=== PATIENT | female | born 1990 | race African-American/Black ===

== ENCOUNTER 2018-01-17 16:19 | Observation (INO) | payer MEDICAID ==
[~2018-01-17] VITALS: Ht 167.6 cm; Wt 72.6 kg
[2018-01-17 16:22] VITALS: BP 101/59; Ht 167.6 cm; Wt 72.6 kg
[2018-01-17 17:47] LABS: APPEARANCE CLEAR (CLEAR); BILIRUBIN NEGATIVE (NEGATIVE); COLOR YELLOW (YELLOW); GLUCOSE NEGATIVE (NEGATIVE); HEMATOCRIT 35.4 % (36.0-48.0); HEMOGLOBIN 11.9 g/dL (12-16); KETONE NEGATIVE (NEGATIVE); MCH 28.9 pg (26.0-34.0); MCHC 33.6 g/dL (31.0-37.0); MCV 85.9 fL (80.0-100.0); MEAN PLATELET VOLUME 9.5 fL (7.4-10.4); NITRITE NEGATIVE (NEGATIVE); PROTEIN NEGATIVE (NEGATIVE); RBC 4.12 10x6/uL (4.00-5.40); RDW 13.4 % (11.5-14.5); SPECIFIC GRAVITY 1.005 (1.005-1.020); UROBILINOGEN NORMAL (NORMAL); WBC 9.8 10x3/uL (4.8-10.8)
[2018-01-17] MEDS ORDERED: FLAGYL500 MG PO (18:01)
[2018-01-17 18:14] LABS: ALBUMIN 3.1 g/dL (3.4-5.0); ALKALINE PHOSPHATASE 62 U/L (46-116); ALT (SGPT) 44 U/L (10-68); BILIRUBIN - TOTAL 0.23 mg/dL (0.2-1.3); CALC OSMOLALITY 275 mosm/kg (275-300); CALCIUM 9.3 mg/dL (8.5-10.1); CARBON DIOXIDE 23.8 mmol/L (21.0-32.0); CHLORIDE - SERUM 105 mmol/L (98-107); CREATININE - SERUM 0.6 mg/dL (0.6-1.3); GLUCOSE 87 mg/dL (74-106); POTASSIUM - SERUM 3.8 mmol/L (3.5-5.1); PROTEIN - SERUM 6.7 g/dL (6.4-8.2); SODIUM 139 mmol/L (136-145); UREA NITROGEN 9 mg/dL (7-18); eGFR NON AFRICAN AMERICAN > 90 mL/min (90-120)
[2018-01-17 18:27] LABS: UDS - AMPHET NEGATIVE QUAL (NEGATIVE); UDS - BARB NEGATIVE QUAL (NEGATIVE); UDS - BENZO NEGATIVE QUAL (NEGATIVE); UDS - COCAINE NEGATIVE QUAL (NEGATIVE); UDS - OPIATE NEGATIVE QUAL (NEGATIVE); UDS - PCP NEGATIVE QUAL (NEGATIVE); UDS - THC NEGATIVE QUAL (NEGATIVE)
[2018-01-18] MEDS ORDERED: IBUPROFEN800 MG PO (13:01)
[2018-01-18] MEDS ORDERED: TYLENOL W/CODEI1 TAB PO (13:02)
[2018-01-19 07:33] LABS: RAPID PLASMA REAGIN Non Reactive (Non Reactive)
== END 2018-01-18 13:55 | disposition home or self-care (01) ==
LOC: D.LDO 16:19 → D.ER 16:19 → EDSTATUS 16:46 → D.LD 16:52 → OBSVTIME 18:00 → D.LD 01-18 13:55
PROVIDERS: Obstetrics & Gynecology
DX: O42.912 Preterm premature rupture of membranes, unspecified as to length of time between rupture and onset of labor, second trimester (principal); Z3A.19 19 weeks gestation of pregnancy; Z37.0 Single live birth

== ENCOUNTER 2018-05-29 10:36 | Emergency (ER) | payer MEDICAID ==
[~2018-05-29] VITALS: Ht 167.6 cm; Wt 77.3 kg
[~2018-05-29 10:36] MED LIST: FLAGYL500 MG PO; IBUPROFEN800 MG PO; TYLENOL W/CODEI1 TAB PO
[2018-05-29 10:39] VITALS: Ht 167.6 cm; Wt 77.3 kg
[2018-05-29 11:21] LABS: BASOPHILS 0.3 % (0-2); EOSINOPHILS 1.1 % (0-7); HEMATOCRIT 39.3 % (36.0-48.0); HEMOGLOBIN 13.2 g/dL (12-16); LYMPHOCYTES 28.7 % (15-50); MCH 28.4 pg (26.0-34.0); MCHC 33.6 g/dL (31.0-37.0); MCV 84.7 fL (80.0-100.0); MEAN PLATELET VOLUME 9.5 fL (7.4-10.4); MONOCYTES 5.1 % (2-11); NEUTROPHILS 64.8 % (40-80); PLATELET COUNT 276 10x3/uL (130-400); RBC 4.64 10x6/uL (4.00-5.40); RDW 13.2 % (11.5-14.5); WBC 6.5 10x3/uL (4.8-10.8)
[2018-05-29 11:37] LABS: ALBUMIN 3.9 g/dL (3.4-5.0); ALKALINE PHOSPHATASE 61 U/L (46-116); ALT (SGPT) 21 U/L (10-68); CALC OSMOLALITY 278 mosm/kg (275-300); CALCIUM 8.8 mg/dL (8.5-10.1); CARBON DIOXIDE 25.9 mmol/L (21.0-32.0); CHLORIDE - SERUM 102 mmol/L (98-107); CREATININE - SERUM 0.8 mg/dL (0.6-1.3); GLUCOSE 98 mg/dL (74-106); POTASSIUM - SERUM 3.8 mmol/L (3.5-5.1); PROTEIN - SERUM 7.5 g/dL (6.4-8.2); SODIUM 139 mmol/L (136-145); UREA NITROGEN 14 mg/dL (7-18); eGFR NON AFRICAN AMERICAN > 90 mL/min (90-120)
[2018-05-29 14:46] VITALS: BP 122/89
== END 2018-05-29 14:47 | disposition home or self-care (01) ==
LOC: D.ER 10:36
PROVIDERS: Family Medicine
DX: O20.0 Threatened abortion (principal); Z3A.00 Weeks of gestation of pregnancy not specified

== ENCOUNTER 2018-07-21 10:43 | Emergency (ER) | payer MEDICAID ==
[~2018-07-21] VITALS: Ht 167.6 cm; Wt 82.3 kg
[2018-07-21 10:51] VITALS: BP 130/79; Ht 167.6 cm; Wt 82.3 kg
[2018-07-21 11:30] LABS: APPEARANCE HAZY (CLEAR); BILIRUBIN NEGATIVE (NEGATIVE); COLOR YELLOW (YELLOW); GLUCOSE NEGATIVE (NEGATIVE); KETONE NEGATIVE (NEGATIVE); NITRITE NEGATIVE (NEGATIVE); PROTEIN NEGATIVE (NEGATIVE); SPECIFIC GRAVITY 1.015 (1.005-1.020); UROBILINOGEN NORMAL (NORMAL)
[2018-07-21 11:32] LABS: BASOPHILS 0.1 % (0-2); EOSINOPHILS 0.7 % (0-7); HEMATOCRIT 34.6 % (36.0-48.0); IMMATURE GRANULOCYTES 0.2 % (0-5); LYMPHOCYTES 23.7 % (15-50); MCHC 34.7 g/dL (31.0-37.0); MCV 83.6 fL (80.0-100.0); MEAN PLATELET VOLUME 9.4 fL (7.4-10.4); MONOCYTES 7.7 % (2-11); NEUTROPHILS 67.6 % (40-80); PLATELET COUNT 234 10x3/uL (130-400); RBC 4.14 10x6/uL (4.00-5.40); RDW 13.1 % (11.5-14.5); WBC 8.4 10x3/uL (4.8-10.8)
[2018-07-21 11:34] LABS: BACTERIA MODERATE /hpf (NONE SEEN); MUCUS >1+ /lpf (NONE SEEN); RED CELLS - URINE 0-5 /hpf (0-5); WHITE CELLS - URINE 0-5 /hpf (0-5)
[2018-07-21 11:45] LABS: ALBUMIN 3.4 g/dL (3.4-5.0); ALKALINE PHOSPHATASE 47 U/L (46-116); ALT (SGPT) 16 U/L (10-68); BILIRUBIN - TOTAL 0.31 mg/dL (0.2-1.3); CALC OSMOLALITY 267 mosm/kg (275-300); CALCIUM 9.2 mg/dL (8.5-10.1); CARBON DIOXIDE 24.4 mmol/L (21.0-32.0); CHLORIDE - SERUM 101 mmol/L (98-107); CREATININE - SERUM 0.7 mg/dL (0.6-1.3); GLUCOSE 81 mg/dL (74-106); POTASSIUM - SERUM 3.7 mmol/L (3.5-5.1); PROTEIN - SERUM 7.3 g/dL (6.4-8.2); SODIUM 135 mmol/L (136-145); UREA NITROGEN 10 mg/dL (7-18); eGFR NON AFRICAN AMERICAN > 90 mL/min (90-120)
[2018-07-21 11:50] LABS: HCG SERUM POSITIVE (NEGATIVE)
== END 2018-07-21 12:55 | disposition short-term general hospital (02) ==
LOC: D.ER 10:43
PROVIDERS: Emergency Medicine
DX: O20.0 Threatened abortion (principal); Z3A.12 12 weeks gestation of pregnancy

== ENCOUNTER → 2018-07-21 13:24 | Outpatient (CLI) | payer MEDICAID ==
[2018-07-21 10:51] VITALS: BMI 29.2
== END | disposition home or self-care (01) ==
LOC: D.LABREF 13:24 → D.LDO 13:24
PROVIDERS: ATTEND Obstetrics & Gynecology
DX: O26.851 Spotting complicating pregnancy, first trimester (principal); Z3A.11 11 weeks gestation of pregnancy

== ENCOUNTER 2018-09-10 14:58 | Inpatient (IN) | payer MEDICAID ==
[~2018-09-10] VITALS: Ht 167.6 cm; Wt 83.6 kg
[2018-09-10 16:25] LABS: ALKALINE PHOSPHATASE 60 U/L (46-116); ALT (SGPT) 18 U/L (10-68); BILIRUBIN - TOTAL 0.32 mg/dL (0.2-1.3); CALC OSMOLALITY 275 mosm/kg (275-300); CALCIUM 8.9 mg/dL (8.5-10.1); CARBON DIOXIDE 23.4 mmol/L (21.0-32.0); CHLORIDE - SERUM 105 mmol/L (98-107); CREATININE - SERUM 0.6 mg/dL (0.6-1.3); GLUCOSE 85 mg/dL (74-106); POTASSIUM - SERUM 3.5 mmol/L (3.5-5.1); PROTEIN - SERUM 6.2 g/dL (6.4-8.2); SODIUM 139 mmol/L (136-145); UREA NITROGEN 9 mg/dL (7-18); eGFR NON AFRICAN AMERICAN > 90 mL/min (90-120)
[2018-09-10] MEDS ORDERED: PRENAVITE1 TAB PO ×2 (16:25→16:30)
[2018-09-10 16:30] LABS: MCH 29.7 pg (26.0-34.0); MCHC 35.3 g/dL (31.0-37.0); MCV 84.2 fL (80.0-100.0); MEAN PLATELET VOLUME 9.8 fL (7.4-10.4); PLATELET COUNT 230 10x3/uL (130-400); RBC 4.04 10x6/uL (4.00-5.40); RDW 13.3 % (11.5-14.5); WBC 8.9 10x3/uL (4.8-10.8)
[2018-09-10 16:49] LABS: EOSINOPHILS 1 % (0-7); LYMPHOCYTES 9 % (15-50); MONOCYTES 7 % (2-11); NEUTROPHILS 83 % (40-80); PLATELET ESTIMATE NORMAL; ROULEAUX OCC
[2018-09-10 18:35] VITALS: BP 119/68; Ht 167.6 cm; Wt 83.6 kg
[2018-09-11 06:18] LABS: HEMATOCRIT 29.4 % (36.0-48.0); MCH 28.9 pg (26.0-34.0); MEAN PLATELET VOLUME 9.7 fL (7.4-10.4); PLATELET COUNT 210 10x3/uL (130-400); RBC 3.46 10x6/uL (4.00-5.40); RDW 13.2 % (11.5-14.5)
[2018-09-11 06:42] LABS: EOSINOPHILS 2 % (0-7); LYMPHOCYTES 20 % (15-50); MONOCYTES 7 % (2-11); NEUTROPHILS 71 % (40-80); PLATELET ESTIMATE NORMAL
[2018-09-11 07:22] VITALS: BP 115/64
[2018-09-11 12:32] VITALS: BP 112/69
[2018-09-11 16:06] VITALS: BP 118/79
[2018-09-11 16:30] LABS: MCH 29.5 pg (26.0-34.0); MCHC 34.6 g/dL (31.0-37.0); MCV 85.3 fL (80.0-100.0); MEAN PLATELET VOLUME 9.4 fL (7.4-10.4); RBC 4.14 10x6/uL (4.00-5.40); RDW 13.1 % (11.5-14.5); WBC 8.9 10x3/uL (4.8-10.8)
[2018-09-11 16:39] LABS: HEMATOCRIT 35.3 % (36.0-48.0); HEMOGLOBIN 12.2 g/dL (12-16)
== END 2018-09-11 17:30 | disposition home or self-care (01) | DRG 833 ==
LOC: D.LDO 14:58 → D.LD 16:57
PROVIDERS: ADMIT Obstetrics & Gynecology; ATTEND Obstetrics & Gynecology
DX: O42.912 Preterm premature rupture of membranes, unspecified as to length of time between rupture and onset of labor, second trimester (principal); Z3A.19 19 weeks gestation of pregnancy

== ENCOUNTER → 2018-09-28 09:52 | Outpatient (CLI) | payer MEDICAID ==
[2018-09-10 18:35] VITALS: BMI 29.7
[~2018-09-28 09:52] MED LIST changes: +PRENAVITE1 TAB PO
== END | disposition home or self-care (01) ==
LOC: D.LDO 09:52
PROVIDERS: ATTEND Obstetrics & Gynecology
DX: O76 Abnormality in fetal heart rate and rhythm complicating labor and delivery (principal)

== ENCOUNTER 2018-11-17 13:58 | Emergency (ER) | payer MEDICAID ==
[~2018-11-17] VITALS: Ht 167.6 cm; Wt 81.8 kg
[2018-11-17 14:12] VITALS: Ht 167.6 cm; Wt 81.8 kg
[2018-11-17] MEDS ORDERED: IBUPROFEN800 MG PO (14:17)
[2018-11-17] MEDS ORDERED: OXYCODONE HCL5 M1 PO (14:17)
[2018-11-17 17:00] LABS: APPEARANCE CLEAR (CLEAR); BASOPHILS 0.1 % (0-2); BILIRUBIN NEGATIVE (NEGATIVE); COLOR YELLOW (YELLOW); EOSINOPHILS 1.3 % (0-7); GLUCOSE NEGATIVE (NEGATIVE); HEMOGLOBIN 12.1 g/dL (12-16); IMMATURE GRANULOCYTES 0.2 % (0-5); KETONE NEGATIVE (NEGATIVE); MCH 29.4 pg (26.0-34.0); MCHC 34.6 g/dL (31.0-37.0); MCV 85.2 fL (80.0-100.0); MONOCYTES 6.2 % (2-11); NEUTROPHILS 73.2 % (40-80); NITRITE NEGATIVE (NEGATIVE); PLATELET COUNT 264 10x3/uL (130-400); PROTEIN NEGATIVE (NEGATIVE); RBC 4.11 10x6/uL (4.00-5.40); RDW 13.2 % (11.5-14.5); SPECIFIC GRAVITY 1.005 (1.005-1.020); UROBILINOGEN NORMAL (NORMAL); WBC 8.2 10x3/uL (4.8-10.8)
[2018-11-17 17:02] LABS: BACTERIA FEW /hpf (NONE SEEN); EPITHELIAL CELLS 0-5 /hpf (0-5); RED CELLS - URINE 0-5 /hpf (0-5); WHITE CELLS - URINE 0-5 /hpf (0-5)
[2018-11-17 17:23] LABS: ALBUMIN 2.6 g/dL (3.4-5.0); ALKALINE PHOSPHATASE 74 U/L (46-116); ALT (SGPT) 23 U/L (10-68); BILIRUBIN - TOTAL 0.23 mg/dL (0.2-1.3); CALC OSMOLALITY 279 mosm/kg (275-300); CALCIUM 8.5 mg/dL (8.5-10.1); CARBON DIOXIDE 27.6 mmol/L (21.0-32.0); CHLORIDE - SERUM 108 mmol/L (98-107); CREATININE - SERUM 0.7 mg/dL (0.6-1.3); GLUCOSE 87 mg/dL (74-106); POTASSIUM - SERUM 3.7 mmol/L (3.5-5.1); PROTEIN - SERUM 6.1 g/dL (6.4-8.2); SODIUM 142 mmol/L (136-145); UREA NITROGEN 6 mg/dL (7-18); eGFR NON AFRICAN AMERICAN > 90 mL/min (90-120)
[2018-11-17] MEDS ORDERED: TORADOL10 MG PO (18:54)
[2018-11-17 20:10] VITALS: BP 119/84
[2018-11-24] MEDS ORDERED: DICLOXACILLIN500 MG PO (13:54)
== END 2018-11-17 20:18 | disposition home or self-care (01) ==
LOC: D.ER 13:58
PROVIDERS: Family Medicine
DX: O26.90 Pregnancy related conditions, unspecified, unspecified trimester (principal); K43.2 Incisional hernia without obstruction or gangrene

== ENCOUNTER 2018-11-27 10:33 | Day surgery (SDC) | payer MEDICAID ==
[~2018-11-27] VITALS: Ht 167.6 cm; Wt 81.8 kg
[~2018-11-27 10:33] MED LIST changes: +DICLOXACILLIN500 MG PO; +OXYCODONE HCL5 M1 PO; +TORADOL10 MG PO
[2018-11-27 10:49] LABS: HEMATOCRIT 36.7 % (36.0-48.0); HEMOGLOBIN 12.8 g/dL (12-16); MCH 29.6 pg (26.0-34.0); MCHC 34.9 g/dL (31.0-37.0); MCV 84.8 fL (80.0-100.0); MEAN PLATELET VOLUME 8.9 fL (7.4-10.4); RBC 4.33 10x6/uL (4.00-5.40); RDW 13.1 % (11.5-14.5); WBC 6.1 10x3/uL (4.8-10.8)
[2018-11-27 10:53] LABS: PLATELET COUNT 324 10x3/uL (130-400)
[2018-11-27 10:58] LABS: BASOPHILS 0.3 % (0-2); EOSINOPHILS 1.9 % (0-7); IMMATURE GRANULOCYTES 0.2 % (0-5); LYMPHOCYTES 23.4 % (15-50); MONOCYTES 4.7 % (2-11); NEUTROPHILS 69.5 % (40-80)
--- NOTE | 2018-11-27 12:00 | NUR ---
RECEIVED TO ROOM 2238 VIA FROM OUTPATIENT. A/O X3. NO C/O AT THIS TIME. SKIN IS INTACT WTIHOUT REDNESS EXCEPT INCISION TO LOWER ABDOMEN WHICH IS CLEAN DRY AND WELL APPROXIMATED. PRASHANTS NEEDS.
[2018-11-27 12:23] VITALS: BP 123/80; Ht 167.6 cm; Wt 81.8 kg
[2018-11-27] MEDS ORDERED: COLACE100 MG PO (12:23)
--- NOTE | 2018-11-27 16:00 | NUR ---
IV SITED TO RIGHT HAND AFTER 4 ATTEMPTS WITH 22G. DENIES NEEDS.
[2018-11-27 17:02] VITALS: BP 107/60
--- NOTE | 2018-11-27 17:36 | NUR ---
REQUESTED AND GIVEN ONE HYDROCODONE PO FOR C/O HEADACHE AND BREAST PAIN LEVEL 8. WILL MONITOR.
--- NOTE | 2018-11-27 19:53 | NUR ---
UP AMBULATED IN HALLWAY. NO CHANGES NOTED. DENIES NEEDS.
--- NOTE | 2018-11-27 20:00 | NUR ---
ASSESSMENT PER FLOWSHEET. IV PATENT RT HAND SALINE LOCKED. SITE CLEAR. PATIENT IS PUMPING BREAST MILK FOR HER WHO IS A PATIENT IN [employer].
[2018-11-27 20:34] VITALS: BP 117/61
--- NOTE | 2018-11-27 22:00 | NUR ---
MEDS GIVEN PER MAR.
--- NOTE | 2018-11-28 | NUR ---
TAKING A SHOWER SELF CARE. REMINDED THAT SHE IS NPO.
[2018-11-28 01:22] VITALS: BP 120/58
--- NOTE | 2018-11-28 04:00 | NUR ---
MEDS GIVEN PER MAR.
[2018-11-28 05:18] VITALS: BP 105/58
--- NOTE | 2018-11-28 05:31 | NUR ---
RESTING QUIETLY DENIES NEEDS.
--- NOTE | 2018-11-28 08:50 | NUR ---
AWAKE AND ALERT. ORIENTED X3. UP AT SINK PERFORMING ADL'S. LUNGS ARE CLEAR BILATERALLY, NO COUGH NOTED. SKIN IS INTACT WTIHOUT REDNESS, INCISION TO LOWER ABDOMEN WITHOUT SIGNS OF INFECTION. IV TO RIGHT HAND IS PATENT WTIHOUT REDNESS AT INSERTION SITE. DENIES NEEDS. FAMILY AT BEDSIDE.
--- NOTE | 2018-11-28 10:00 | NUR ---
IS DOING 30CC EVERY HALF HOUR ORDERD. HAS BEEN UP AND URINATED WITHOUT DIFFICUTLY. AMBULATED 250 FEET WITHOUT DIFFICULTY. DENIES NEEDS.
[2018-11-28 12:11] VITALS: BP 112/68
--- NOTE | 2018-11-28 13:45 | NUR ---
DISCHARGED TO HOME AMBULATORY WITH . DISCHARGE INSTRUCTIONS GIVEN BOTH VERBALLY AND WRITTEN. ALL QUESTIONS ANSWERED. PATIENT AND VERBALIZED UNDERSTANDING OF SAME. NEEDED PRESCRIPTIONS ESCRIBED TO PHARMACY OF CHOICE. ALL BELONGINGS WITH PATIENT. IV TO LEFT WRIST D/C WITH CATHETER INTACT.
--- NOTE | 2018-11-28 14:00 | NUR ---
OFF UNIT VIA BED TO SURGERY.
--- NOTE | 2018-11-28 14:07 | NUR ---
CALLED, THEY LEFT CPAP MACHINE IN CLOSET. PLACED AT DESK PER STAFF. RETURNED AND RETRIEVED MACHINE.
[2018-11-28 17:14] VITALS: BP 117/87
--- NOTE | 2018-11-28 17:21 | NUR ---
RETURNED FROM SURGERY.
[2018-11-28] MEDS ORDERED: COLACE100 MG PO (18:51)
[2018-11-28] MEDS ORDERED: HYDROCODON-ACE1 EAC7 PO (18:52)
--- NOTE | 2018-11-28 19:38 | NUR ---
PATIENT REQUESTED TO GO HOME AT THIS TIME. DISCHARGED TO HOME AMBULATORY WITH . DISCHARGE INSTRUCTIONS GIVEN BOTH VERBALLY AND WRITTEN. ALL QUESITONS ANSWEREED. NEEDED PRESCRITPIONS GIVEN TO PATIENT. PATIENT VERBALIZED UNDERSTANDING OF DISCHARGE INSTRUCTIONS. IV TO RIGHT HAND D/C WITH CATHETER INTACT. ALL BELONGINGS WITH PATIENT.
--- NOTE | 2018-11-29 11:45 | DS ---
PATIENT:LEOPOLDO DA SILVA :89 MEDICAL RECORD: [id number] DISCHARGE SUMMARY ADMISSION DATE: 11/27/18 DISCHARGE DATE: 11/28/18 PROCEDURE: Open right inguinal hernia repair with mesh. The patient was to undergo an outpatient right inguinal hernia repair with mesh. She is very tender over the right inguinal area. She has recently undergone delivery of a baby via , but this hernia was not an incisional hernia, but was instead a mature right indirect inguinal hernia. She was to undergo this hernia repair on Tuesday; however, the patient was currently on antibiotics due to mastitis. I wanted to make sure that we would not seed the mesh with bacteria and for this reason, I placed her on IV antibiotics for about 24 hours while she was an inpatient in the hospital. She underwent the above operative procedure. Postoperatively, her pain was controlled. She was dismissed home on [place] as well as Colace. She was told to "pump and dump." I will see her in the office in 3-4 weeks. TRANSINT:[id number] Voice Confirmation ID: [id number] DOCUMENT ID: [id number] BARRETT RODRIGUEZ MD at 1145 CC: [id number] DICTATION DATE: 11/28/182028 QA AUTOMATION ENGINEER: 11/29/18 1043 [facility] 11/28/18 [id number] [place] [address]
--- NOTE | 2018-11-30 16:24 | OP ---
PATIENT NAME: LEOPOLDO DA SILVA MEDICAL RECORD: [id number] :89 LOCATION:[facility] ADMISSION DATE: SURGEON: BARRETT RODRIGUEZ MD DATE OF OPERATION: 11/28/2018 PREOPERATIVE DIAGNOSIS: Symptomatic right inguinal hernia. POSTOPERATIVE DIAGNOSIS: Symptomatic indirect right inguinal hernia. PROCEDURE: Open right indirect inguinal hernia with bi-layered preperitoneal polypropylene mesh. SURGEON: Barrett Rodriguez MD RAKER BUFFING WHEEL: None. BLOOD LOSS: Minimal. ANESTHESIA: General. COMPLICATIONS: None. The risks, possible complications and alternatives to the procedure were explained to the patient. She elects to proceed. OPERATIVE COURSE: The patient was conveyed to the operating room electively on 11/28/2018. General anesthesia was induced by the anesthesia staff. The abdomen and genitals were sterilely prepped and draped. A transverse incision was accomplished in the right groin. Sharp dissection was carried down through the skin and subcutaneous tissues as well as Ileana fascia. I then cleaned connective tissue from the underlying external oblique aponeurosis. The aponeurosis was then incised along the direction of its fibers. I bluntly dissected down through the internal oblique and transversus abdominis muscles. A preperitoneal pocket was fashioned bluntly. I was unable to reduce the hernia sac in its entirety. I transected the hernia sac. I transected the round ligament as well, ligating it distally in order to prevent bleeding. The peritoneal opening was then closed with a running 3-0 Vicryl suture. I completed my preperitoneal dissection. I then cut 2 ovals out of a polypropylene mesh. The 2 ovals was sutured together one on top of the other with running #1 Surgidacs. The mesh was placed in the preperitoneal space. The internal oblique and transversus abdominis muscles were then sutured together with multiple interrupted horizontal mattress 0 Surgidac incorporating a portion of the mesh with these sutures. The external oblique aponeurosis was then closed with running #1 Vicryls. At no time during the operation was there any apparent nervous injury. Ileana fascia was approximated with interrupted 3-0 Vicryls. The subdermis was approximated with interrupted 3-0 Vicryls. The skin was approximated with a running intracuticular 3-0 Vicryl. Benzoin and Steri-Strips were applied. The patient was then extubated and conveyed to the post-anesthesia care unit where she was in stable condition. I plan that she will be dismissed home with a narcotic analgesic. OPERATIVE REPORT [id number] LEOPOLDO DA SILVA TRANSINT:[id number] Voice Confirmation ID: [id number] DOCUMENT ID: [id number] BARRETT RODRIGUEZ MD at 1624 CC: [id number] DICTATION DATE: 11/29/18 1000 GRIZZLY WORKER: 11/29/18 1349 [facility] 11/28/18 [id number] [place] [address]
== END 2018-11-28 19:00 | disposition home or self-care (01) ==
LOC: D.OPS 10:33 → D.MS 10:33 → D.OPS 12:40 → D.PAN 13:00 → D.OPS 13:00
PROVIDERS: Anesthesiology; ATTEND Surgery
DX: K40.90 Unilateral inguinal hernia, without obstruction or gangrene, not specified as recurrent (principal)

== ENCOUNTER 2019-08-31 05:30 | Day surgery (SDC) | payer MEDICAID ==
[2019-08-29 10:18] LABS: BASOPHILS 0.4 % (0-2); EOSINOPHILS 2.5 % (0-7); HEMATOCRIT 38.1 % (36.0-48.0); HEMOGLOBIN 12.5 g/dL (12-16); IMMATURE GRANULOCYTES 0.4 % (0-5); MCH 28.2 pg (26.0-34.0); MCHC 32.8 g/dL (31.0-37.0); MEAN PLATELET VOLUME 9.3 fL (7.4-10.4); MONOCYTES 6.4 % (2-11); NEUTROPHILS 61.3 % (40-80); PLATELET COUNT 319 10x3/uL (130-400); RBC 4.43 10x6/uL (4.00-5.40); RDW 12.7 % (11.5-14.5); WBC 5.3 10x3/uL (4.8-10.8)
[~2019-08-31] VITALS: Ht 167.6 cm; Wt 91.2 kg
--- NOTE | ~2019-08-31 | OP ---
PATIENT NAME: LEOPOLDO DA SILVA MEDICAL RECORD: [id number] :89 [facility] AD[facility] DATE: SURGEON: GIN ZHAO MD DATE OF OPERATION: 08/31/2019 PREOPERATIVE DIAGNOSES: 1. Menorrhagia. 2. The patient desires permanent sterility. POSTOPERATIVE DIAGNOSES: 1. Menorrhagia. 2. The patient desires permanent sterility. 3. Pelvic adhesions. PROCEDURE: Operative laparoscopy, lysis of adhesions, tubal ligation via bipolar cautery as well as hysteroscopy and NovaSure endometrial ablation. SPECIMENS: None. FINDINGS: Included; 1. Extensive adhesive disease involving the omentum and the anterior abdominal wall. 2. Adhesions of right fallopian tube. 3. Grossly normal-appearing endometrial canal. COMPLICATIONS: None apparent. HYSTEROSCOPIC FLUID LOSS: Approximately 100 cc of 0.9 normal saline. ESTIMATED BLOOD LOSS: Minimal. PROCEDURE IN DETAIL: The patient was taken to the operating room where general anesthesia was achieved without any difficulty. The patient was then prepped and draped in normal sterile fashion in the dorsal lithotomy position in the [facility]. The bladder was drained of approximately 100 cc of clear yellow urine and a sponge stick was placed into the vagina for uterine elevation. At this point, the patient was prepped and draped and a 5-mm incision was made infraumbilically and the intraperitoneal space was entered using the 5-mm bladeless trocar under direct visualization of the laparoscope. Following entry into the intraperitoneal space, the introducer was removed and the camera was then placed back into the intraperitoneal space. The patient was insufflated and opening pressure found to be less than 10 mmHg. At this point, a dense adhesion was noted between the anterior abdominal wall and the omentum from previous surgery. Attention was then turned to the left lower quadrant where a 5-mm incision was made approximately 5 cm above and 3 cm medial to the anterior superior iliac spine. A 5-mm bladeless trocar was used to enter the intraperitoneal space under direct visualization of the laparoscope. The Thunderbeat cautery/harmonic device was then used to excise the anterior abdominal wall omental adhesions with good hemostasis noted. Following removal of the adhesions, attention was then turned to the left fallopian tube, which the Alejandra bipolar cautery was used to desiccate an approximately 5-6 cm portion of the mid tube. This was also performed on the right with good hemostasis noted. The operative sites were observed under decreased pressurization and found to be hemostatic. The patient was desufflated. The ports were removed and the skin repaired with 3-0 Vicryl in an interrupted OPERATIVE REPORT [id number] LEOPOLDO DA SILVA. Attention was then turned to the vagina where the sponge stick was removed. A Graves speculum was placed into the vagina and the anterior lip of the cervix was grasped with a single tooth tenaculum. The patient sounded to approximately 8-1/2 cm, dilation to approximately 5-Swedish was performed and the hysteroscope was placed into the endometrial canal. Following removal of the hysteroscope, the NovaSure device was then calibrated based on the measurement of cervical length and uterine cavity width. Vacuum precheck was passed times 2 and uterine ablation was performed using the NovaSure device. Following completion of the cycle, the NovaSure device was removed using the bow and arrow method, and good hemostasis was noted from the cervical os. The tenaculum on anterior leaf of the cervix was removed. The patient tolerated the procedure well, was transported to postanesthesia recovery stable without incident. TRANSINT:[id number] Voice Confirmation ID: [id number] DOCUMENT ID: [id number] GIN ZHAO MD CC: [id number] DICTATION DATE: 09/05/19820 DIABETES EDUCATION COORDINATOR: 09/05/19913 [facility] 08/31/19 [facility] [address] [place] [address]
[~2019-08-31 05:30] MED LIST changes: +COLACE100 MG PO; +DIFLUCAN150 MG PO; +HYDROCODON-ACE1 EAC7 PO; +METRONIDAZOLE70 GM VG; +ZOLOFT50 MG PO
[2019-08-31 05:58] VITALS: BP 108/71; Ht 167.6 cm; Wt 91.2 kg
[2019-08-31 07:30] LABS: HCG URINE NEGATIVE (NEGATIVE)
--- NOTE | 2019-08-31 09:32 | NUR ---
0930 OPA DISCONTINUED. PATIENT MAINTAINING PATENT AIRWAY
--- NOTE | 2019-08-31 17:08 | NUR ---
1200 PT NOW ABLE TO VOID. AMBULATES WITHOUT DIFFICULTY. STATES PAIN 05/14. PREFERS TO WAIT FOR PAIN MED UNTIL AFTER D/C AND AT HOME
== END 2019-08-31 12:10 | disposition home or self-care (01) ==
LOC: D.OPS 05:30 → D.PAN 07:30 → D.OPS 07:30 → D.PAN 08:45 → D.OPS 08:45
PROVIDERS: ATTEND Obstetrics & Gynecology
DX: N92.0 Excessive and frequent menstruation with regular cycle (principal); Z30.2 Encounter for sterilization; R10.2 Pelvic and perineal pain; N76.0 Acute vaginitis

== ENCOUNTER → 2020-07-15 14:31 | Outpatient (CLI) | payer MEDICAID ==
[2020-03-07 12:42] VITALS: BMI 32.8
[~2020-07-15 14:31] MED LIST changes: +DECADRON4 MG PO; +ZANAFLEX4 MG PO
== END | disposition home or self-care (01) ==
LOC: D.CT 14:30
PROVIDERS: ATTEND Nurse Practitioner
DX: R10.30 Lower abdominal pain, unspecified (principal)